=== PATIENT | male | born 1955 | race Caucasian/White ===

== ENCOUNTER → 2023-05-11 09:08 | Outpatient (BNVA) | payer OTHER, SELFPAY | PROVIDERS: Referring Provider Family Medicine; Visit Provider Orthopaedic Surgery | DX: M41.56 Other secondary scoliosis, lumbar region (principal); M47.816 Spondylosis without myelopathy or radiculopathy, lumbar region | CPT/HCPCS: 72110 ==

== ENCOUNTER → 2023-06-01 08:05 | Outpatient (BNVA) | payer OTHER, SELFPAY | PROVIDERS: Visit Provider Orthopaedic Surgery | DX: M19.012 Primary osteoarthritis, left shoulder (principal); Z98.1 Arthrodesis status; M47.812 Spondylosis without myelopathy or radiculopathy, cervical region | CPT/HCPCS: 72040; 73030 ==

== ENCOUNTER 2023-06-09 08:54 | Outpatient (CLI) | payer MEDICARE, SELFPAY ==
--- NOTE | 2023-06-09 09:30 | MR_ITS ---
WS: [id number] MRI CERVICAL SPINE NONCONTRAST TECHNIQUE: Sagittal T1, T2 and STIR imaging. Axial T2, gradient, and fiesta imaging. CLINICAL INFORMATION: cervical neck COMPARISON: None. FINDINGS: Straightening of the normal cervical lordosis. Prior postoperative changes ACDF C5-6. C2-C3: Mild facet arthropathy. Mild LEFT and no significant RIGHT foraminal narrowing. Spinal canal i s patent. C3-C4: Mild disc osteophyte complex with endplate ridging. Moderate facet arthropathy. Moderate RIGHT greater than LEFT bony foraminal narrowing. Moderate facet arthropathy. Mild central canal stenosis. C4-C5: Mild disc bulging with osteophytic ridging. Advanced LEFT facet arthropathy. Moderate LEFT and mild RIGHT bony foraminal narrowing. Mild central canal stenosis. C5-C6: Postoperative changes ACDF. Spinal canal is patent. Moderate facet arthropathy. Mild RIGHT gre ater than LEFT bony foraminal narrowing. C6-C7: Mild disc bulge with osteophytic ridging. Moderate LEFT greater than RIGHT bony foraminal narr owing. Mild facet arthropathy. Mild central canal stenosis. C7-T1: Mild central canal stenosis. Moderate bilateral bony foraminal narrowing. Moderate facet arthr opathy. Mild central canal stenosis. Visualized brain stem structures: Normal. Prevertebral soft tissues: Normal. IMPRESSION: 1. Straightening of the normal cervical lordosis. 2. Mild central canal stenosis C3-C4 C4-C5 and C6-C7. Mild central canal stenosis C7-T1. 3. Multilevel moderate bony foraminal narrowing worse at RIGHT C3-C4, LEFT C4-5, LEFT C6-7 and LEFT C7-T1. 4. Asymmetric moderate to advanced facet arthropathy worse at RIGHT C3-C4 and LEFT C4-C5
== END 2023-06-09 08:55 | disposition home or self-care (01) ==
LOC: RAD 08:57
PROVIDERS: PCP Registered Nurse; Visit Provider Orthopaedic Surgery
DX: M48.03 Spinal stenosis, cervicothoracic region (principal); M47.812 Spondylosis without myelopathy or radiculopathy, cervical region
CPT/HCPCS: 72141

== ENCOUNTER → 2023-06-15 08:25 | Outpatient (BNVA) | payer MEDICARE, SELFPAY | PROVIDERS: PCP Registered Nurse; Visit Provider Orthopaedic Surgery | DX: M25.519 Pain in unspecified shoulder (principal); M54.2 Cervicalgia | CPT/HCPCS: 99214 ==

== ENCOUNTER 2023-06-29 08:04 | Outpatient (CLI) | payer MEDICARE, SELFPAY ==
--- NOTE | 2023-06-29 08:11 | MR_ITS ---
WS: [id number] MRI LUMBAR SPINE NONCONTRAST HISTORY: Chronic low back pain. Progressive. COMPARISON: Lumbar spine radiographs 05/11/2023 TECHNIQUE: Sagittal and axial multisequence imaging is submitted. Prior cervical fusion C5-6. Mild curvature. Posterior alignment is normal. Disc spaces are mildly desiccated. No fractures or marrow edema. Conus terminates normally at L1-2 disc level. L1-L2: Mild facet arthritis. No stenosis. L2-L3: Mild annular disc bulging with ligamentum flavum and facet arthritis. Disc encroachment upon t he ventral thecal sac and subarticular recesses. There is mild disc contact on the exiting LEFT L2 ne rve root. Mild central and bilateral subarticular recess and LEFT foraminal stenosis. L3-L4: Diffuse mild annular disc bulging with ligamentum flavum and facet arthritis. Moderate ligamen merle flavum and facet arthritis. Mild central and subarticular recess and foraminal stenosis. Slightly greater encroachment upon the RIGHT traversing L4 nerve root. L4-L5: Moderate annular disc bulging with marked ligamentum flavum and facet arthritis. There is a ve ry tiny RIGHT paracentral disc protrusion contacting the traversing RIGHT L5 nerve root. Fluid in the LEFT facet joint. Mild to moderate central and bilateral subarticular recess stenosis. Mild foramina l stenosis. L5-S1: No stenosis or disc protrusions. IMPRESSION: 1. L4-5: Mild to moderate central and bilateral subarticular recess stenosis. Disc encroachment upon the traversing L5 nerve roots and a very tiny RIGHT paracentral disc protrusion. Only mild foraminal stenosis. 2. L3-4: Mild central, bilateral subarticular recess and foraminal stenosis. Slightly greater encroac hment upon the RIGHT traversing L4 nerve root. 3. L2-3: Mild central, bilateral subarticular recess and LEFT foraminal stenosis.
== END 2023-06-29 08:05 | disposition home or self-care (01) ==
LOC: RAD 08:05
PROVIDERS: PCP Registered Nurse; Visit Provider Orthopaedic Surgery
DX: M48.061 Spinal stenosis, lumbar region without neurogenic claudication (principal); G89.29 Other chronic pain
CPT/HCPCS: 72148

== ENCOUNTER 2023-07-05 07:46 | Outpatient (CLI) | payer MEDICARE, SELFPAY ==
--- NOTE | 2023-07-05 | MR_ITS ---
WS: [id number] MRI LEFT SHOULDER NONCONTRAST TECHNIQUE: Sagittal T2, coronal T1, T2 and proton density imaging. Axial gradient PDE imaging. CLINICAL INFORMATION: PAIN COMPARISON: None. FINDINGS: Some images degraded by motion. Moderate degenerative arthritis AC joint. Mild downsloping acromion. Slight narrowing of the subacro mial space. Mild edema at the AC joint. Edema involving the supraspinatus muscle belly nonspecific bu t may be inflammatory. Chronic thinning of the distal supraspinatus which appears intact. Normal infraspinatus. Normal teres minor. Subscapularis appears intact. Biceps tendon appears intact within the bicipital groove. Bicep s labral anchor appears intact. Degenerative fraying of the glenoid labrum. Moderate degenerative art hritis of the glenohumeral articulation. IMPRESSION: Some images degraded by motion 1. Moderate degenerative arthritis AC joint with mild edema. 2. Mild downsloping acromion with slight impingement on the distal supraspinatus. Chronic thinning o f the supraspinatus. No high-grade tears. 3. Edema involving the supraspinatus muscle belly may be inflammatory. 4. Rotator cuff is intact. 5. Normal biceps in the bicipital groove. 6. Moderate degenerative narrowing of the glenohumeral articulation.
== END 2023-07-05 07:47 | disposition home or self-care (01) ==
LOC: RAD 07:48
PROVIDERS: PCP Registered Nurse; Visit Provider Orthopaedic Surgery
DX: M19.012 Primary osteoarthritis, left shoulder (principal)
CPT/HCPCS: 73221

== ENCOUNTER → 2023-07-08 10:21 | Outpatient (BNVA) | payer MEDICARE, SELFPAY | PROVIDERS: PCP Registered Nurse; Visit Provider Orthopaedic Surgery | DX: M25.512 Pain in left shoulder (principal); M54.2 Cervicalgia; M43.16 Spondylolisthesis, lumbar region | CPT/HCPCS: 36415; 80053; 81003; 83036; 85025; 99214 ==

== ENCOUNTER → 2023-07-15 10:05 | Outpatient (BNVA) | payer MEDICARE, SELFPAY | PROVIDERS: PCP Registered Nurse; Visit Provider Family Medicine | DX: Z01.818 Encounter for other preprocedural examination (principal) | CPT/HCPCS: 80048; 85025 ==

== ENCOUNTER 2023-07-28 15:09 | Observation (INO) | payer MEDICARE, SELFPAY ==
[2023-07-28] VITALS (22 sets, daily range): BP systolic 107–158; BP diastolic 66–98; PULSE 74–97; RESP 14–22; TEMP 36.4–37.1; O2SAT 90–95; BMI 34.0
--- NOTE | 2023-07-28 | XR_ITS ---
WS: [id number] Exam: XR lumbar spine 2-3V* [id number] Date/Time of Exam: 07/28/2023 12:00 AM Reason For Exam: L4-5 instrumentd fusion Intraoperative AP and lateral images of the lumbar spine are submitted. The images depict posterior fusion with pedicle screws and posterior rods at L4-5 with intervening di sc spacer.
[2023-07-28 09:52] LABS: Glucose Point of Care 137 mg/dL (70-110)
[2023-07-28] MEDS: sodium chloride 0.9% 1,000 ML 30 ML IV (09:56)
--- NOTE | 2023-07-28 11:44 | ANES.PREANE2 ---
Pre-Anesthetic Assessment Height/Weight: Height 1.75 m Weight 104.326 kg Temp Pulse Resp BP Pulse Ox O2 Del Method 97.7 F 75 16 158/98 94 Room Air 07/28/23 09:26 07/28/23 09:26 07/28/23 09:26 07/28/23 09:26 07/28/23 09:26 07/28/23 09:26 Preop Diagnosis: Spondylolisthesis L4-5, lumbar stenosis Operation Date: 07/28/23 10:25 Proposed Procedures p L4/5 Posterior Lumbar Interbody Fusion PLIF(Not Applicable) - Miguel Mead, Familial anesthetic complications: None Was Beta Meño taken within 24 hours: N/A Was Clonidine taken within 24 hours: N/A Last intake: Intake Last Liquid Date 07/27/23 Last Liquid Time 21:00 Last Solid Date 07/27/23 Last Solid Time 21:00 Social No alcohol and No tobacco Exam alert, oriented x 3, clear to auscultation bilaterally and regular rate & rhythm Airway Mallampati: Class II Dentition: full CV/HEM Hypertension AAA Metabolic Diabetes Mellitus and Hyperlipidemia Anesthetic Plan ASA status: 3 Anesthesia: General Risk of > 500 ml blood loss (7ml/kg in children): No Medications/Allergies Home Medications Medication Instructions Recorded Confirmed Last Taken Type amlodipine 5 mg tablet 5 mg PO DAILY 05/11/23 07/27/23 07/27/23 History aspirin 81 mg tablet,delayed 81 mg PO DAILY 05/11/23 07/27/23 07/20/23 History release blood sugar diagnostic (OneTouch 05/11/23 07/08/23 Unknown History Verio test strips) celecoxib 200 mg capsule 200 mg PO DAILY 05/11/23 07/27/23 07/20/23 History gabapentin 300 mg capsule 300 mg PO DAILY 05/11/23 07/27/23 07/27/23 History glipizide 10 mg tablet 10 mg PO DAILY 05/11/23 07/27/23 07/27/23 History naloxone 4 mg/actuation nasal spray 4 mg intranasal Q2M 05/11/23 07/27/23 Unknown History omega-3 acid ethyl esters 1 gram 1 cap PO DAILY 05/11/23 07/27/23 07/20/23 History capsule oxycodone-acetaminophen 10 mg-300 1 tab PO Q8H PRN pain 05/11/23 07/27/23 07/27/23 History mg tablet potassium chloride 10 mEq 10 meq PO DAILY 05/11/23 07/27/23 07/27/23 History capsule,extended release tizanidine 4 mg capsule 4 mg PO BID PRN muscle spams 05/11/23 07/27/23 07/27/23 History atorvastatin 80 mg tablet 80 mg PO DAILY 07/15/23 07/27/23 07/27/23 History losartan 100 mg tablet 100 mg PO DAILY 07/15/23 07/27/23 07/27/23 History sildenafil 100 mg tablet 50 mg PO PRN PRN Sexual Activity 07/15/23 07/27/23 Unknown History Allergies Allergy/AdvReac Type Severity Reaction Status Date / Time Sulfa (Sulfonamide Allergy ADR-Vomitin Verified 07/15/23 08:57 Antibiotics) g Current Medications Generic Name Dose Route Start Last Admin Trade Name Freq PRN Reason Stop Dose Admin Sodium Chloride 1,000 mls @ 30 mls/hr 07/28/23 09:30 07/28/23 09:56 Sodium Chloride 0.9% IV 07/29/23 09:29 30 mls/hr .Q24H ABHI Administration Data Anesthesia Cardiac Studies: No Data to Display
[2023-07-28] MEDS: ceFAZolin 2,000 MG in sodium chloride 0.9% (plus) 50 ML 100 MG IV ×3 (12:08→22:47)
--- NOTE | 2023-07-28 12:57 | W.PM.OPSUD ---
Surgery/Procedure H&P Update DATE OF PROCEDURE: July 28, 2023 DATE H&P PERFORMED: 07/15/23 H&P UPDATE INFORMATION: I have reviewed H&P completed within last 30 days, I have examined patient prior to procedure and No changes to prior documentation PREOP DIAGNOSIS: Spondylolisthesis L4-5, lumbar stenosis PLANNED PROCEDURE: Operation Date: 07/28/23 10:25 Proposed Procedures p L4/5 Posterior Lumbar Interbody Fusion PLIF(Not Applicable) - Miguel Mead DO
[2023-07-28] MEDS: lidocaine-epi 1% 20 mL INJ 10 ML INJECTION (13:11)
[2023-07-28] MEDS: heparin, porcine 1,000 unit/mL INJ 10 mL 6000 UNIT XX (13:12)
[2023-07-28] MEDS: vancomycin 1,000 MG SDV 1000 MG XX (13:12)
--- NOTE | 2023-07-28 14:35 | P.OP_ITS ---
Operative Report Date of procedure: July 28, 2023 Pre-op diagnosis: Lumbar stenosis with neurogenic claudication Post-op diagnosis: same Procedure done: 1. L4/5 Interbody fusion with posterolateral fusion 2. Instrumentation L4/5 3. Cage at L4/5 4. L4/5 Laminectomy withfacetectomies 5. use of autograft from same incision 6. allograft 7. Bone marrow aspirate from right iliac crest 8. use of computer navigation /stereotactic for spine Surgeon: Miguel Mead DO Patrol Sergeant: Juno Hedrick Patrol Sergeant: The social services assistant, Juno Hedrick, PAC was needed for his expertise under the microscope. He was important and necessary throughout the procedure to complete in a safe and timely manner. He assisted with patient positioning prepping and draping tissue retraction suctioning of the operative field protection of the dural sac and tissue closure Estimated blood loss (mL): 200 Procedure: 1. L4/5 Interbody fusion with posterolateral fusion 2. Instrumentation L4/5 3. Cage at L4/5 4. L4/5 Laminectomy withfacetectomies 5. use of autograft from same incision 6. allograft 7. Bone marrow aspirate from right iliac crest 8. use of computer navigation /stereotactic for spine Patient is brought to the operative suite. After undergoing anesthesia, the patient had neuro monitoring attached. Patient was then placed in the prone position on the Charles table. All areas of impingement were well-padded. Maddy ent was then prepped and draped in the normal sterile fashion. Skin incision was then made over the L4 -L5 level. Subperiosteal dissection was made out to the transverse processes of L4 and L5. Once the exposure was complete attention was then brought to placing the pedicle screws. Next the [employer] bone marrow aspirate kit was used to aspirate bone marrow aspirate. This was done by using the sharp probe to open up the bone. Aspiration was performed and then the blunt probe was then used to dissect down to through the bone tunnel. An aspirating well drawn back a millimeter approximately 20 cc of bone marrow aspirate was used. And mixed with the allograft and autograft bone that will be used. Next the fiducial for computer navigation was attached the patient. This was done by placing 2 pins into the right iliac crest. Next the fiducial was attached. C-arm was brought in and spun around the patient. The information from serum was then sent to computer and later used for placing the pedicle screws. The technique for placing the pedicle screws was to use a drill followed by the gearshift probe linked to computer navigation. Followed by the ball probe to feel the superior inferior medial lateral rueda of the pedicles. Then placement of the screws using computer navigation. Was done at each pedicle. Screws were placed at L5 bilaterally and L5 bilaterally. Next attention was brought to performing the laminectomy ofL4. This was done using the high-speed bur Kerrisons and curettes. Once the lamina was removed and then attention was brought to performing a partial facetectomy on the contralateral side. This was done again using the high-speed bur curettes and Kerrisons. The ligamentum flavum was taken down bilaterally from L4 to L5. Attention was then brought to the facet on the ipsilateral side. The facet was taken down. The L5 nerve was decompressed as it passed around the L5 pedicle. The laminectomy was done for purposes of decompressing the nerve as well as placement of the cage. The L4 nerve was identified as it traversed through the L4/5 foramen. The thecal sac was identified and retracted. The L4/5 disc base was identified. Using a knife the disc base was opened. And then sequential brandon were placed. The first shaver was a 6 and the last shaver was a 11. Using a pituitary and down going curette the endplates were scraped and disc material was removed from the space. Once adequate decompression of the disc base was felt to be had. Osteoamp sponge was packed into the anterior aspect of the disc base. Then a size 12 cage from [employer] was placed after packing osteoamp into the cage. While placing the cage the thecal sac and L5 nerve was protected. C arm was used to ensure that the cages placed in the appropriate position. Attention was then brought to attaching the rods to the screws placed in the L4 and L5 bilaterally. Caps were torqued into position. Locking the construct in place. Wound was copiously irrigated and then attention was brought to decorticating the facets and transverse processes laterally. Bone that was taken down from the lamina was used along with osteoamp fibers and sponges were packed into the lateral gutters along the facet joints. This was done bilaterally. Wound was then closed in a layered fashion starting with the thoracolumbar fascia. 0-vicryl was used the sub cutaneous tissue was closed with 2-0 vicryl and skin with 4-0 monocryl. Glue was then used to seal the skin and a steril dressing was applied. Patient was then placed in the supine position. The endotracheal tube was removed and patient was transferred to the PACU in stable condition.
--- NOTE | 2023-07-28 15:15 | ANE.PACU2 ---
Inpatient post-anesthesia follow up: Airway intact: Yes Vital signs: Temperature 97.6 F Pulse Rate 95 Respiratory Rate 18 Blood Pressure 126/88 Pulse Oximetry 93 Oxygen Delivery Me thod Nasal Cannula Oxygen Flow Rate 4 Fraction of Inspir ed Oxygen Hydration adequate: Yes Nausea and vomiting: No Pain level: 1 Mental status: Baseline
[2023-07-28] MEDS: oxyCODONE-APAP 10-325 mg Tablet PO ×2 (15:56→22:45)
[2023-07-28] MEDS: lactated ringers 1,000 ML 90 ML IV (15:56)
[2023-07-28] MEDS: oxyCODONE 20 mg ER (12 HR) Tablet PO (17:33)
[2023-07-28] MEDS: docusate sodium 100 mg Capsule PO (17:33)
[2023-07-28] MEDS: tizanidine 4 mg Tablet PO (22:42)
[2023-07-29] VITALS (8 sets, daily range): BP systolic 126–150; BP diastolic 75–89; PULSE 77–88; RESP 16–18; TEMP 36.6–36.9; O2SAT 93–94; BMI 34.0
[2023-07-29] MEDS: oxyCODONE-APAP 10-325 mg Tablet PO ×2 (03:21→10:04)
[2023-07-29] MEDS: lactated ringers 1,000 ML 90 ML IV (03:22)
[2023-07-29] MEDS: ceFAZolin 2,000 MG in sodium chloride 0.9% (plus) 50 ML 100 MG IV (05:58)
--- NOTE | 2023-07-29 07:02 | P.PN_ITS ---
Subjective Subjective: POD 1 Patient resting comfortably. Reports ports mild back pain. Denies any leg pain. Denies any shortness of breath headaches or chest pain. Vitals/I&O/Wt Last Vital Signs Temp 97.9 F 07/29/23 03:02 Pulse 77 07/29/23 03:02 Resp 16 07/29/23 03:21 BP 128/76 07/29/23 03:02 Pulse Ox 93 07/29/23 03:02 O2 Del Method Nasal Cannula 07/29/23 03:02 O2 Flow Rate 1.5 07/29/23 03:02 07/28/23 07/29/23 07/29/23 22:59 06:59 14:59 Intake Total 530 / 1580 2022 / 3602 Output Total 450 / 1150 725 / 1875 Balance 80 / 430 1297 / 1727 Weight last 48 hrs Weight 230 lb Physical Exam Narrative: Patient presents alert and oriented x3 with a good general appearance normal mo od and affect. Normal coordination normal stability. Mild tenderness around the incisional site with the incision appear to be clean and dry w/ hemovac intact. No signs of erythema or drainage. No signs of infection. Patient denies any fevers or chills. 5/5 motor strength both lower extremities with negative straight leg raise bilaterally. Calves are supple no medial thigh tenderness. Pulses are 2+ at the dorsalis pedis and posterior tibial region. Good capillary refill throughout normal sensation light touch both lower extremities. Urinary Catheter Management: Whaley: Cath Placed During This Visit: yes Reason for Continuing Indwelling Catheter: Perioperative Use in Selected Surgeries Urinary Catheter Date of Insertion: 07/28/23 Urinary Catheter Time of Insertion: 12:30 A&P Assessment and plan (1) Status post lumbar spinal fusion: Physical therapy to work with mobilization. We will discontinue Hemovac drain and change dressing with Silverlon. Continue incentive spirometry at home. High risk of bleeding will continue SCDs for DVT prophylaxis. Will discharge home later this morning. We will send the oxycodone to the inpatient pharmacy for room delivery. We will see him back in the office in 1 week's time for wound check. Continue walking program with no bending lifting or twisting. Attestations 2 Medical Necessity Statement*: Discharge home later today after Hemovac drain discontinued. Coding Level of Care Code Acute Code for Chg Fwd Diagnoses Status post lumbar spinal fusion Z98.1
[2023-07-29] MEDS: omega-3 fatty acids 1,000 mg Capsule 1 MG PO (07:42)
[2023-07-29] MEDS: atorvastatin 40 mg Tablet 80 MG PO (07:42)
[2023-07-29] MEDS: aspirin 81 mg EC Tablet PO (07:42)
[2023-07-29] MEDS: amlodipine 5 mg Tablet PO (07:42)
[2023-07-29] MEDS: gabapentin 300 mg Capsule PO (07:43)
[2023-07-29] MEDS: losartan 50 mg Tablet 100 MG PO (07:43)
[2023-07-29] MEDS: CELEcoxib 200 mg Capsule PO (07:43)
[2023-07-29] MEDS: potassium chloride ER 10 mEq Tablet PO (07:43)
[2023-07-29] MEDS: docusate sodium 100 mg Capsule PO (07:43)
[2023-07-29] MEDS: oxyCODONE 20 mg ER (12 HR) Tablet PO (08:54)
--- NOTE | 2023-07-29 09:07 | PC.NURSE ---
HEMOVAC DISCONTINUED. PATIENT TOLERATED WELL
--- NOTE | 2023-07-29 10:09 | PC.CHAP ---
Pastoral Care Encounter/Spiritual Assessment Type of Contact [] Declined bee rancher visit [] Patient/Family/Request visit [] Outpatient visit [] Follow-up visit [] Physician referral [] Code/Alert [x] Routine visit [] Staff referral [] Actively dying [] Patient sleeping [] Family support [] [] Out of room [] Palliative care [] [x] Receiving care in room [] Pre-surgical visit [] Trauma [] Long length of stay [] ICU visit [] Other: Relational/Emotional Strength [x] Patient feels connected with others/family/visitors/staff [] Distress [] Loneliness/isolation [] Abandonment Spirituality of Patient [x] Person of Verna [] Attends Baptism of their Verna [x] Believes in Prayer [] Reads Bible or Buddhism materials [] There are Spiritual issues to be addressed 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 Interventions [x] Prayer [x] Active listening [x] Non-anxious presence [x] Spiritual/emotional support [] Crisis/trauma care [x] Spiritual counseling [] Bereavement support [] Provided bereavement packet [] Provided Bible/devotional materials [] Provided toy/stuffed animal, coloring book to patient or family member [] Provided Communion [] Anointing/[place] [] Salvation [x] Completed spiritual assessment [] Other: Impact on Illness or Injury [] Angry [] Fearful [] Anxious [] Often cries [] Exhaustion [] Unable to work [] Unable to attend cheondoism [] Unable to walk/stand [] Unable to read [] Unable to drive [] Unable to eat/drink [] Unable to sleep [] Unable to be with family [] Patient intubated [] Other: Summary surgery fusion on verd[place] in some pain well rehab at home has good attitude well go home Time spent with patient 10 mins
--- NOTE | 2023-07-29 11:13 | PC.SOCIAL ---
Care coordination: Patient does not have transportation home. His calls and reports that insurance will assist w/ transport. CM called and spoke to [facility] and he reports that transportation is not covered under their plan. Cm called patients and she reports that patient will need to have a cartender ride set up and for transport home and they will private pay.
--- NOTE | 2023-07-30 11:07 | PM.DCS ---
Discharge Providers Date of Admission: 07/28/23 15:09 Date of Discharge: July 29, 2023 Attending Provider at Admission: Miguel Mead DO Attending Provider at Discharge: Miguel Mead DO Primary Care Provider: Indy Presley Diagnoses at Discharge Discharge Diagnosis (1) Status post lumbar spinal fusion: Status: Acute Reason for Visit Reason for Visit: M43.16 Physical Exam Urinary Catheter Management: Whaley: Cath Placed During This Visit: yes, but has since been removed by the nurse Reason for Continuing Indwelling Catheter: Perioperative Use in Selected Surgeries Urinary Catheter Date of Insertion: 07/28/23 Urinary Catheter Time of Insertion: 12:30 Date Urinary Catheter Removed: 07/29/23 Time Urinary Catheter Discontinued: 07:10 Discharge Data Studies Completed and Pending Completed Studies During Hospitalization Category Date Time Status XR lumbar spine 2-3V* [id number] Routine Exams 07/28/23 Completed Laboratory Results POC Glucose 137 mg/dL (70-110) H 07/28/23 09:49 Vitals Last Vital Signs Temp 98.5 F 07/29/23 08:00 Pulse 88 07/29/23 08:00 Resp 18 07/29/23 11:38 BP 150/89 07/29/23 08:00 Pulse Ox 93 07/29/23 08:00 O2 Del Method Nasal Cannula 07/29/23 08:00 O2 Flow Rate 1.5 07/29/23 03:02 Discharge Plan Discharge Patient Disposition: Home Condition: Stable Prescriptions: Continued potassium chloride 10 mEq capsule, extended release 10 meq PO DAILY amlodipine 5 mg tablet 5 mg PO DAILY celecoxib 200 mg capsule 200 mg PO DAILY gabapentin 300 mg capsule 300 mg PO DAILY glipizide 10 mg tablet 10 mg PO DAILY omega-3 acid ethyl esters 1 gram capsule 1 cap PO DAILY naloxone 4 mg/actuation spray,non-aerosol 4 mg intranasal Q2M Rx Instructions: spray 1 dose into ONE nostril; alternate nostrils w each dose until help arrives (DME) OneTouch Verio test strips Strip See Rx Instructions .Route Rx Instructions: As directed tizanidine 4 mg capsule 4 mg PO BID PRN (Reason: muscle spams) aspirin 81 mg tablet,delayed release (DR/EC) 81 mg PO DAILY sildenafil 100 mg tablet 50 mg PO PRN PRN (Reason: Sexual Activity) Rx Instructions: administer 30 minutes to 4 hours before activity atorvastatin 80 mg tablet 80 mg PO DAILY losartan 100 mg tablet 100 mg PO DAILY Discontinued oxycodone-acetaminophen 10-300 mg tablet 1 tab PO Q8H PRN (Reason: pain) No Action oxycodone-acetaminophen 10-325 mg tablet 1 tab PO Q4H PRN (Reason: pain) 7 Days Qty: 40 0RF oxycodone-acetaminophen [Endocet] 10-325 mg tablet 1 tab PO Q4H PRN (Reason: pain) 7 Days Qty: 40 0RF Discharge Orders: Discharge Order (Routine); Ordered 07/29/23 Ordered By: Juno Hedrick Referrals: Miguel Mead DO [Physician] - 08/03/23 3:00 pm () Indy Presley [Primary Care Provider] - 08/02/23 10:00 am (Please arrive by 9:45) Discharge Diet: Advance as tolerated Discharge Activity: Limit activity as instructed Patient Instructions: Oxycodone/Acetaminophen (By mouth), Lumbar Spinal Fusion (GEN), Opioid Safety Activity Restrictions/Additional Instructions: Thank you for choosing [facility] for your care! The following is a list of instructions, from your provider, to follow upon your discharge to ensure you have the optimal recovery from your recent injury or surgery. Follow-up care is a eldridge part of your treatment and safety. Be sure to make and go to all appointments and call your doctor if you are having problems. If you do not already have a follow-up appointment made, call Dr. Mead's] office in the next 1-3 days to make follow up appointment for [1-2] weeks at [phone]. It is also a good idea to know your test results and keep a list of the medicines you take. Medications will be prescribed for you at your provider's discretion. These medications are to be used as instructed; if they are taken more often that prescribed they will not be refilled early and in most cases will not be refilled at all. > When a refill is needed, you should contact rena good 2-3 business days before your prescription runs out. Medications will NOT be refilled by practice management consultant providers after hours! > Many pain medications contain Tylenol (Acetaminophen). Do not consume more than 4,000 mg of Tylenol per day in total with any combination of medications. > Pain medications can cause constipation. Please use an over the counter stool softener as directed, while taking pain medications. Consult your local pharmacist with questions or recommendations on stool softeners. If constipation persists, contact our office or your primary care provider. > While under our care, you are not to receive pain medications or other controlled substances from any other provider unless our office is notified and approves. Any attempts to do so will result in refusal to prescribe any further pain medications and possible dismissal from our practice. ? Walking is essential for the healing process after surgery. We would like you to slowly advance your walking. This should be done on relatively flat clear ground (inside or out) or can be done on a treadmill. Remember this goal does not have to happen all at once, slowly increase your distance and duration. This can be broken into more more than one walk per day as tolerated. Patients who walk as directed after surgery rarely require Physical Therapy. In the unlikely event this issue arises your provider will direct hospital staff to make the appropriate arrangements. ? No lifting over 5 pounds {a gallon of milk) or bending/twisting until further notice. Each of these activities places an unnecessary amount of stress onto the body and can impede the delicate healing process. > Instead of bending at the waist, keep your back straight and bend at the knees. > Instead of twisting your torso, keep your back straight and turn your entire body with your feet. ? You may sleep in any position which makes you comfortable. Many patients find comfort sleeping in a reclining chair. It is not abnormal to have difficulty sleeping for the first several weeks following your surgery. We recommend trying Benadry! or Tylenol PM as directed to help with your sleeping difficulties. Both medications are over the counter and available without prescription. ? NO SMOKING!!! Smoking dramatically increases the probability of developing postoperative wound infections. ? Common complaints after lumbar and/or thoracic spine surgery include, but are not limited to: numbness and/or tingling in the legs, pain around the incision and surrounding tissues, muscle spasms, or stiffness of the middle to low back. Contact our office if these symptoms persist or if an acute change occurs. ? No driving for the first 3-5days, and not while taking narcotics until seen at your follow-up appointment and cleared. There are no restrictions for riding on short trips, however if you take a longer trip, arrangements should be made to make regular stops to get out of the vehicle and stretch . ? Swelling is an unfortunate event that will take place with any surgery and is the primary source of your postoperative discomfort. While walking and regular approved activities helps control inflammation, there are additional steps you can take to minimize swelling. > Place ice over the surgical site and surrounding tissue for twenty minutes, followed by applying a low/medium heat (heating pad) for an additional twenty minutes every 1-2 hours as needed for painrelief. > You may use of over the counter anti-inflammatory medications (Ibuprofen, Motrin, Aleve, Advil, etc) as directed on the package label. These types of medicines will significantly reduce the amount of discomfort you experience after surgery from swelling. It should be noted that if you have and allergy to any of these medications, or a history of ulcers or kidney disease you should consult you primary care provider prior to starting these medications. Discharge Attestations Time Spent in Discharge Care*: less than 30 min Quality Metrics Clinical Quality Measures [ No reported AMI, CVA or VTE this stay] Coding Level of Care Code Acute Code for Chg Fwd Diagnoses Status post lumbar spinal fusion Z98.1
== END 2023-07-29 11:39 | disposition home or self-care (01) ==
LOC: MEDSURG 18:49
PROVIDERS: Admitting Provider Orthopaedic Surgery; PCP Registered Nurse; Visit Provider Orthopaedic Surgery
PROC: (CPT 22612; principal; 2023-07-28 10:25)
DX: M48.062 Spinal stenosis, lumbar region with neurogenic claudication (principal); I10 Essential (primary) hypertension; E11.9 Type 2 diabetes mellitus without complications; E78.5 Hyperlipidemia, unspecified; Z79.82 Long term (current) use of aspirin
CPT/HCPCS: 20930; 20936; 20939; 22633; 22840; 22853; 61783; 63052; 36416; 51702; 72100; 76000; 82962; 97116; 97161; C1713; G0378; J0690; J1100; J1170; J1644; J2250; J2371; J2405; J2704; J2710; J3010; J3370; J3490; J7030; J7120

== ENCOUNTER → 2023-08-03 14:09 | Outpatient (BNVA) | payer MEDICARE, SELFPAY | PROVIDERS: PCP Registered Nurse; Visit Provider Orthopaedic Surgery | DX: Z98.1 Arthrodesis status (principal); Z47.89 Encounter for other orthopedic aftercare | CPT/HCPCS: 99024 ==

== ENCOUNTER → 2023-08-10 14:40 | Outpatient (BNVA) | payer MEDICARE, SELFPAY | PROVIDERS: PCP Registered Nurse; Visit Provider Orthopaedic Surgery | DX: Z98.1 Arthrodesis status (principal); Z47.89 Encounter for other orthopedic aftercare | CPT/HCPCS: 72100; 99024 ==

== ENCOUNTER → 2023-08-13 08:56 | Outpatient (BNVA) | payer MEDICARE, SELFPAY | PROVIDERS: PCP Registered Nurse; Referring Provider Orthopaedic Surgery; Visit Provider Student in an Organized Health Care Education/Training Program | DX: M75.42 Impingement syndrome of left shoulder (principal) | CPT/HCPCS: 20610; 99204; J3301 ==

== ENCOUNTER → 2023-09-02 14:33 | Outpatient (BNVA) | payer MEDICARE, SELFPAY | PROVIDERS: PCP Registered Nurse; Visit Provider Orthopaedic Surgery | DX: Z98.1 Arthrodesis status (principal); Z47.89 Encounter for other orthopedic aftercare | CPT/HCPCS: 72100; 99024 ==

== ENCOUNTER → 2023-10-14 14:08 | Outpatient (BNVA) | payer MEDICARE, SELFPAY | PROVIDERS: PCP Registered Nurse; Visit Provider Orthopaedic Surgery | DX: Z98.1 Arthrodesis status; Z47.89 Encounter for other orthopedic aftercare | CPT/HCPCS: 72100; 99024 ==

== ENCOUNTER → 2023-10-26 14:14 | Outpatient (BNVA) | payer MEDICARE, SELFPAY | PROVIDERS: PCP Registered Nurse; Visit Provider Student in an Organized Health Care Education/Training Program | DX: Z01.818 Encounter for other preprocedural examination (principal); S46.002A Unspecified injury of muscle(s) and tendon(s) of the rotator cuff of left shoulder, initial encounter; M75.22 Bicipital tendinitis, left shoulder; M75.42 Impingement syndrome of left shoulder; M19.012 Primary osteoarthritis, left shoulder; X58.XXXA Exposure to other specified factors, initial encounter | CPT/HCPCS: 99214 ==

== ENCOUNTER → 2023-11-24 11:00 | Outpatient (BNVA) | payer MEDICARE, SELFPAY | PROVIDERS: PCP Registered Nurse; Visit Provider Family Medicine | DX: Z01.818 Encounter for other preprocedural examination (principal) | CPT/HCPCS: 80053; 81003; 85025 ==

== ENCOUNTER → 2023-11-25 07:33 | Outpatient (BNVA) | payer MEDICARE, SELFPAY | PROVIDERS: PCP Registered Nurse; Visit Provider Family Medicine | DX: R82.71 Bacteriuria (principal) | CPT/HCPCS: 87086 ==

== ENCOUNTER 2023-12-08 05:39 | Day surgery (SDC) | payer MEDICARE, SELFPAY ==
[2023-12-08] VITALS (10 sets, daily range): BP systolic 142–194; BP diastolic 90–104; PULSE 76–90; RESP 17–19; TEMP 36.1–37.1; O2SAT 90–95; BMI 29.9
[2023-12-08] MEDS: ketorolac 30 mg/mL INJ IVP (06:30)
[2023-12-08] MEDS: acetaminophen 1,000 MG/100 ML PIGGYBACK 400 MG IV (06:30)
[2023-12-08] MEDS: scopolamine 1.5 Patch 1 PATCH TRANSDERMA (06:30)
[2023-12-08] MEDS: sodium chloride 0.9% 1,000 ML 30 ML IV (06:31)
[2023-12-08 06:35] LABS: Glucose Point of Care 113 mg/dL (70-110)
--- NOTE | 2023-12-08 06:53 | SUR.PREOP ---
Timeout was completed at bedside with Dr De Santiago, nerve block was performed to left shoulder
--- NOTE | 2023-12-08 07:00 | P.HP_ITS ---
Same Day Surgery H&P Indication for Procedure/HPI DATE OF PROCEDURE: December 08, 2023 CHIEF COMPLAINT/INDICATIONFOR SURGICAL PROCEDURE: Left shoulder pain rotator cuff injury, biceps tendinitis rotator cuff impingement, AC joint arthritis PREOP DIAGNOSIS: Left shoulder pain rotator cuff injury, biceps tendinitis rotator cuff impi PLANNED PROCEDURE: Operation Date: 12/08/23 07:00 Proposed Procedures p Shoulder Arthroscopy(Left) - Carrillo Steve, DO s AC Joint Resection(Left) - Carrillo Steve, DO s Subacromial Decompression(Left) - Carrillo [place], DO s Rotator Cuff Repair - Arthroscopy/ possible(Left) - Carrillo Steve, DO s Subacromial Ballon Spacer/ possible(Left) - Carrillo Steve, DO s Bicep Tenotomy/ possible(Left) - Carrillo Steve, DO Medications/Allergies* Home Medications Medication Instructions Recorded Confirmed Type amlodipine 5 mg tablet 5 mg PO DAILY 05/11/23 12/08/23 History aspirin 81 mg tablet,delayed 81 mg PO DAILY 05/11/23 12/07/23 History release blood sugar diagnostic (OneTouch 05/11/23 10/26/23 History Verio test strips) celecoxib 200 mg capsule 200 mg PO DAILY 05/11/23 12/07/23 History gabapentin 300 mg capsule 300 mg PO DAILY 05/11/23 12/08/23 History glipizide 10 mg tablet 10 mg PO DAILY 05/11/23 12/08/23 History naloxone 4 mg/actuation nasal spray 4 mg intranasal Q2M 05/11/23 12/07/23 History omega-3 acid ethyl esters 1 gram 1 cap PO DAILY 05/11/23 12/07/23 History capsule potassium chloride 10 mEq 20 meq PO DAILY 05/11/23 12/08/23 History capsule,extended release tizanidine 4 mg capsule 4 mg PO BID PRN muscle spams 05/11/23 12/07/23 History atorvastatin 80 mg tablet 80 mg PO DAILY 07/15/23 12/07/23 History losartan 100 mg tablet 100 mg PO DAILY 07/15/23 12/07/23 History sildenafil 100 mg tablet (Viagra) 50 mg PO PRN PRN Sexual Activity 07/15/23 12/07/23 History fexofenadine 60 mg capsule 60 mg PO DAILY 12/08/23 12/08/23 History Allergies/Adverse Reactions Allergy/AdvReac Type Severity Reaction Status Date / Time Sulfa (Sulfonamide Allergy ADR-Vomitin Verified 12/08/23 06:08 Antibiotics) g Current Medications: Generic Name Dose Route Start Last Admin Trade Name Freq PRN Reason Stop Dose Admin Sodium Chloride 1,000 mls @ 30 mls/hr 12/08/23 06:15 12/08/23 06:31 Sodium Chloride 0.9% IV 12/09/23 06:14 30 mls/hr .Q24H ABHI Administration Pertinent History/Comorbid Conditions* Social History Smoking and tobacco/nicotine status: former use of tobacco/nicotine Alcohol intake: never Pertinent Exam Findings alert, oriented x 3, operative site marked and procedure specific exam findings Please refer to orthopedic office note for full orthopedic examination patient did receive preoperative block and unable to assess motor or sensory at this time. Recommendations Surgery/Procedure today Other Plans: Plan to proceed to the OR today for left shoulder diagnostic and surgical arthroscopy AC joint resection, subacromial decompression, possible rotator cuff repair, possible subacromial balloon, possible biceps tenotomy, patient understands incidence of procedure response with complication alternatives of surgery and through shared decision make elects proceed with surgical intervention. All questions answered. Coding Level of Care Code Acute Code for Chg Daryl
[2023-12-08] MEDS: ceFAZolin 2,000 MG in sodium chloride 0.9% (plus) 50 ML 100 MG IV (07:04)
--- NOTE | 2023-12-08 07:05 | ANES.PREANE2 ---
Pre-Anesthetic Assessment Height/Weight: Height 1.75 m Weight 92.079 kg Temp Pulse Resp BP Pulse Ox O2 Del Method 98.7 F 76 19 H 161/104 93 Room Air 12/08/23 06:13 12/08/23 06:13 12/08/23 06:13 12/08/23 06:13 12/08/23 06:13 12/08/23 06:14 Preop Diagnosis: Left shoulder pain rotator cuff injury, biceps tendinitis rotator cuff impi Operation Date: 12/08/23 07:00 Proposed Procedures p Shoulder Arthroscopy(Left) - Carrillo [place], DO s AC Joint Resection(Left) - Carrillo Steve, DO s Subacromial Decompression(Left) - Carrillo Steve, DO s Rotator Cuff Repair - Arthroscopy/ possible(Left) - Carrillo [place], DO s Subacromial Ballon Spacer/ possible(Left) - Carrillo [place], DO s Bicep Tenotomy/ possible(Left) - Carrillo Steve, DO Familial anesthetic complications: none Was Beta Meño taken within 24 hours: N/A Was Clonidine taken within 24 hours: N/A Last intake: Intake Last Liquid Date 12/07/23 Last Liquid Time 21:00 Last Solid Date 12/07/23 Last Solid Time 21:00 Social No alcohol and No tobacco Exam alert, oriented x 3, clear to auscultation bilaterally and regular rate & rhythm Airway Mallampati: Class IV CV/HEM Hypertension AAA Chronic Renal Insufficiency Metabolic Diabetes Mellitus and Hyperlipidemia Anesthetic Plan ASA status: 3 Anesthesia: General and Regional (specify below) Risk of > 500 ml blood loss (7ml/kg in children): No Medications/Allergies Home Medications Medication Instructions Recorded Confirmed Last Taken Type amlodipine 5 mg tablet 5 mg PO DAILY 05/11/23 12/08/23 12/08/23 History aspirin 81 mg tablet,delayed 81 mg PO DAILY 05/11/23 12/07/23 12/01/23 History release blood sugar diagnostic (OneTouch 05/11/23 10/26/23 Unknown History Verio test strips) celecoxib 200 mg capsule 200 mg PO DAILY 05/11/23 12/07/23 12/03/23 History gabapentin 300 mg capsule 300 mg PO DAILY 05/11/23 12/08/23 12/08/23 History glipizide 10 mg tablet 10 mg PO DAILY 05/11/23 12/08/23 12/07/23 History naloxone 4 mg/actuation nasal spray 4 mg intranasal Q2M 05/11/23 12/07/23 Unknown History omega-3 acid ethyl esters 1 gram 1 cap PO DAILY 05/11/23 12/07/23 12/06/23 History capsule potassium chloride 10 mEq 20 meq PO DAILY 05/11/23 12/08/23 12/08/23 History capsule,extended release tizanidine 4 mg capsule 4 mg PO BID PRN muscle spams 05/11/23 12/07/23 07/27/23 History atorvastatin 80 mg tablet 80 mg PO DAILY 07/15/23 12/07/23 12/07/23 History losartan 100 mg tablet 100 mg PO DAILY 07/15/23 12/07/23 12/07/23 History sildenafil 100 mg tablet (Viagra) 50 mg PO PRN PRN Sexual Activity 07/15/23 12/07/23 Unknown History oxycodone-acetaminophen 10 mg-325 1 tab PO Q4H PRN pain 7 days #40 07/29/23 12/08/23 12/08/23 Rx mg tablet (Endocet) tabs fexofenadine 60 mg capsule 60 mg PO DAILY 12/08/23 12/08/23 12/08/23 History Allergies Allergy/AdvReac Type Severity Reaction Status Date / Time Sulfa (Sulfonamide Allergy ADR-Vomitin Verified 12/08/23 06:08 Antibiotics) g Current Medications Generic Name Dose Route Start Last Admin Trade Name Freq PRN Reason Stop Dose Admin Sodium Chloride 1,000 mls @ 30 mls/hr 12/08/23 06:15 12/08/23 06:31 Sodium Chloride 0.9% IV 12/09/23 06:14 30 mls/hr .Q24H ABHI Administration PFSH Anesthesia Social History Smoking and tobacco/nicotine status: former use of tobacco/nicotine Alcohol intake: never Data Anesthesia Cardiac Studies: No Data to Display
--- NOTE | 2023-12-08 07:06 | ANES.PROC ---
Anesthesia Procedures Procedure/Date: 12/08/23 Nerve Block ^: Nerve Block 1: Main Anesthesia: general anesthesia Time Out Performed: Yes Consent: requested by attending/covering physician, from patient, from other, risks and benefits reviewed and patient agrees to proceed Nerve block location: interscalene (L) Anesthesia monitors applied: pulse oximetry, EKG, BP cuff and oxygen Nerve block position: semi sitting Anesthetic Used: ropivicaine 0.5% (20 ml) and with decadron (4 mg) Ultrasound used to: recognize landmarks, visualize and ID brachial plexus, in supraclavicular region and visualize and ID interscalene groove Nerve Stimulator Used?: No Interscalene/Femoral BLK: 2 stimuplex 22 g needle used for position and inplane approach, visualize local anesthetic spread and no vascular puncture identified Injection: neg aspiration of heme Patient Tolerated Procedure: well Complications: none
[2023-12-08] MEDS: EPINEPHrine 1 mg/mL INJ 2 MG XX (07:55)
--- NOTE | 2023-12-08 08:29 | W.PM.BPON ---
Date of Procedure: 12/08/2023 Surgeon: Carrillo Wilson DO Master Fire Control Technician(s): Rowdy Wilson PA-C Procedure(s) performed: Right shoulder diagnostic and surgical arthroscopy with labral debridement Right shoulder diagnostic and surgical arthroscopy with biceps tenotomy Right shoulder diagnostic and surgical arthroscopy with rotator cuff debridement Right shoulder diagnostic and surgical arthroscopy with subacromial decompression (bursectomy and acromioplasty) Right shoulder diagnostic and surgical arthroscopy with AC joint resection (distal clavicle excision) Right shoulder diagnostic and surgical arthroscopy with subacromial balloon spacer Findings of the procedure(s): Patient found to have extremely redundant and patulous rotator cuff with no tension and complete dysfunction appreciated, patient also had AC joint arthritis subacromial impingement, labral debridement as well as biceps tendinitis patient underwent procedure as planned without any issues or complications. Estimated blood loss: 1 mL Specimen(s) removed: None Post-operative diagnosis: Right shoulder biceps tendinitis, labral tearing, rotator cuff partial tearing with patulous and redundant rotator cuff, subacromial impingement, AC joint arthritis
--- NOTE | 2023-12-08 08:32 | PM.OP ---
Operative Report Date of procedure: December 08, 2023 Surgeon: Carrillo Wilson DO Assembler Faucets: oRwdy Wilson PA-C: PA was necessary for assistance in this case with shoulder positioning to execute the procedure, assistance with instrumentation, as well as implant fixation when necessary, assist with wound closure and dressing application. Procedure: Surgeon: Carrillo Wilson DO Assembler Faucets: Rowdy Wilson PA-C: MANDYC was necessary for assistance in this case for assistance in holding shoulder positioning as well as assistance with instrumentation and passing as well as to assist with wound closure. Procedure: Preoperative diagnosis: Left shoulder pain Left shoulder rotator cuff tear/dysfunction Left shoulder AC joint arthritis Left shoulder subacromial impingement Left shoulder biceps tendinitis Post-op diagnosis:? Left?shoulder massive rotator cuff attenuation and dysfunction Left?shoulder?biceps tendon tear Left shoulder labral tearing Left?shoulder?AC joint arthritis Left?shoulder?subacromial bursitis/impingement Procedure done: Left?shoulder?diagnostic and surgical arthroscopy biceps tenotomy Left?shoulder?diagnostic and surgical arthroscopy labral debridement Left?shoulder?diagnostic and surgical arthroscopy acromioclavicular joint resection Left?shoulder?diagnostic and surgical arthroscopy subacromial decompression (acromioplasty and bursectomy) Left shoulder diagnostic and surgical arthroscopy rotator cuff debridement with subacromial balloon spacer for massive rotator cuff attenuation/tearing and dysfunction Surgeon: Carrillo Wislon DO Estimated blood loss: [1]mL IV fluids: See anesthesia record Implants: Small size [place] Inspace subacromial balloon Complications: None Condition: stable Disposition: same day Brief History: Patient been seen and worked up in the outpatient setting for Left?shoulder?pain.? Pt had an MRI consistent with patients ac joint arthritis, biceps tendintis, subacromial impingement, rotator cuff dysfunction/thinning and possible tearing. Patient's failed conservative treatment and has significant weakness.? Patient has findings on exam are classic consistent of a massive Left shoulder rotator cuff tear. We talked about treatment options far as nonoperative and operative intervention..? We talked about risk benefits complication alternatives surgical nonsurgical treatment options.? Understanding risk of surgery pt agrees to proceed with surgical intervention.? All questions have been answered at this time.? Patient elects proceed with surgery and consent obtained in office. Procedure: Patient seen evaluated in the preoperative holding area.? Consent reviewed and signed with patient.? Once again reviewed patient's MRI results as well as? planned surgical intervention.? Correct extremity marked.? Patient seen evaluated by anesthesia department received regional anesthesia.? Once ready for surgery was taken back to the operative suite.? Patient then subsequently underwent anesthesia per the anesthesia department was transported onto the OR table.? Patient was then placed into a lateral decubitus position with a beanbag and was appropriately secured to the bed.? All bony prominences well-padded.? Patient then had the Left upper extremity was then prepped and draped in standard orthopedic fashion.? Patient received appropriate preoperative antibiotics.? Final timeout performed. The Left upper extremity was then held in hanging from traction utilizing sterile technique.? Next started with standard diagnostic and surgical arthroscopy with posterior portal position introduced arthroscope into the glenohumeral joint.? Visualized the glenohumeral joint I then introduced a spinal needle within the rotator cuff interval to confirm appropriate anterior portal placement.? Once this was confirmed I then made my small incision and then introduced my arthroscopic shaver into the glenohumeral joint.? After thorough debridement was clearly evident patient had a significant erythema as well as positive liftoff sign of the biceps anchor and biceps tendon tear as it was pulled within the joint.? Decision at this time was made to perform a biceps tenotomy.? Introduced a thermal wand and a biceps tenotomy was performed to completion With appropriate release.? Next I evaluated the subscapularis tendon which was intact with no tear. ?Next there was significant labral tearing at biceps anchor and circumferential.? ? I then subsequently utilized a a arthroscopic shaver and thermal wand to perform a labral debridement.? This point time I then visualized the glenohumeral joint.? 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 Infrapatellar pouch was free of loose bodies from viewing the posterior portal.? Next a visualized the rotator cuff superiorly, there is no seatbelt sign however patient's rotator cuff tendon tissue was extremely attenuated and very loose there was no tension and had significant ballooning affect with influx and suction of the joint, consistent with significant massive rotator cuff dysfunction with severe thinning of the tissues concerning for incompetent rotator cuff. This completed my work within the glenohumeral joint all fluid was suctioned free of the joint.? ?Next I reintroduced the arthroscope posteriorly.? And went to the subacromial space.? I established my lateral working portal.? Thermal wand was then introduced laterally and then I subsequently performed extensive bursectomy of the subacromial space.? I then once again visualized the rotator cuff tissue quality was severely thin and attenuated and had no tension and when taking the shoulder through range of motion had no normal tendon excursion consistent with severe rotator cuff attenuation and dysfunction. Patient had fraying throughout the top of the rotator cuff as result and arthroscopic shaver was then subsequently used to debride the subacromial space as well as to debride the top part of the rotator cuff to stimulate healing. Given the severe thinning of patient's rotator cuff and attenuation of tissue this did not function as normal rotator cuff tendon and and therefore behave more like a massive rotator cuff tear this is how he examined clinically on his severity of weakness and classic inability to abduct and forward flex as well as positive drop arm. There is I did not want to shave and take away any residual fibers of the rotator cuff and there was no ability to retention I feel this patient would be appropriate for a subacromial balloon spacer to occupy the space as the rotator cuff was not functioning as a biomechanical he should and the humeral head had excessive superior migration with activation given the attenuation of the rotator cuff. As a result I elected for subacromial balloon spacer. Given this current nature I selected to place a subacromial balloon to help with the humeral head depressor. In order for preparation of this I performed a standard bursectomy. I then utilized my thermal wand to identify the subacromial space and performed a gentle subacromial decompression just to flatten the acromion. I then identified the AC joint. Once identified the AC joint this was very arthritic in nature.? Thermal wand was placed anteriorly to establish appropriate plane for AC joint resection.? Once appropriate margins and anterior inferior and anterior capsule was released I then introduced arthroscopic shaver and a bur and performed AC joint resection of both the acromion to cope plane at the AC joint and a distal clavicle resection was then performed totaling 1 cm in size and was confirmed.? This completed my AC joint resection. At this point in time I then proceeded with placement of a subacromial balloon in space. At this point in time I utilized the standard measuring device utilizing arthroscopic probe and this was determined to have appropriate space for a small sized this was then selected and opened by the rep and handed to my staff. I then utilizing the InSpace deployment device this was then laid into the subacromial space placed into appropriate position the balloon was then exposed and the balloon was then subsequently filled with normal saline to the appropriate amount per [place] InSpace protocol. The device was then disengaged and the balloon was inspected this stayed in stable position I then mobilized the shoulder and the humeral head remained depressed and in its appropriate position while it was taken through range of motion of the balloon stayed in stable position and had satisfactory placement and covered the humeral head. This completed the surgery.? All fluid was suctioned from the?shoulder.? All instruments were removed.? The lateral incision was then closed with nylon stitches.? As well as the portal sites closed with portal nylon stitches.? Xeroform 4 x 4's ABD and tape was then applied to the Left?shoulder?and was placed into a?shoulder?abduction pillow sling..? Patient was then awakened from anesthesia and then taken back to PACU in stable condition.? Patient tolerated procedure without any issues. Disposition: Patient taken back in stable condition recovering well.? Dressings on in place clean dry and intact.? Will be nonweightbearing to the Left upper extremity.? Follow appropriate PT protocol.? Patient to follow-up with me in the office in 2 weeks.? Patient will receive appropriate discharge instruction as well as pain medication postoperatively.? All questions answered.? We will contact the office for any questions or concerns.
--- NOTE | 2023-12-08 08:46 | PM.PACU ---
PACU note Narrative: Patient is a 68-year-old male that just underwent a left shoulder arthroscopy with balloon spacer placement. Patient transferred to PACU in stable condition. Pain is well controlled. shoulder Dressing on , dry and in place. Patient's operative arm is in a shoulder immobilizer. Patient is awake and alert and able to respond to my questions accordingly. Patient's fingers are warm with good perfusion. Normal cap refill under 2 seconds. left radial pulse 2+. Unable to assess further range of motion in arm due to sling. Pt can wiggle fingers and has sensation to hand intact. Exam: awake Disposition: discharged
[2023-12-08] MEDS: hyDRALAzine 20 mg/mL INJ 1 mL 5 MG IVP (09:10)
--- NOTE | 2023-12-08 09:23 | PC.NURSE ---
Dr. De Santiago aware of low O2 sat, directed for the pt to remain on nasal canula, but okay to transfer to phase 2
[2023-12-08] MEDS: HYDROcodone-acetaminophen 5-325 mg Tablet 1 TAB PO (09:36)
--- NOTE | 2023-12-08 10:18 | SUR.PHASEII ---
Patient's O2 is dropping below 90% when NC removed. Having patient sit on bed with O2 will monitor. Once patient can maintain O2 above 92% will release home
--- NOTE | 2023-12-08 10:20 | ANE.PACU2 ---
Inpatient post-anesthesia follow up: Airway intact: Yes Vital signs: Temperature 98.0 F Pulse Rate 81 Respiratory Rate 17 Blood Pressure 156/90 Pulse Oximetry 93 Oxygen Delivery Me thod Nasal Cannula Oxygen Flow Rate 2 Fraction of Inspir ed Oxygen Hydration adequate: Yes Nausea and vomiting: No Pain level: 1 Mental status: Baseline
== END 2023-12-08 10:20 | disposition home or self-care (01) ==
PROVIDERS: PCP Registered Nurse; Visit Provider Student in an Organized Health Care Education/Training Program
PROC: (CPT 29805; principal; 2023-12-08 07:00)
PROC: 0RSH0ZZ Reposition Left Acromioclavicular Joint, Open Approach (ICD-10-PCS; CPT 29826; 2023-12-08 07:00)
PROC: (CPT 29826; 2023-12-08 07:00)
PROC: 0LQ24ZZ Repair Left Shoulder Tendon, Percutaneous Endoscopic Approach (ICD-10-PCS; CPT 29827; 2023-12-08 07:00)
PROC: (CPT 29999; 2023-12-08 07:00)
PROC: (CPT 23405; 2023-12-08 07:00)
DX: M75.102 Unspecified rotator cuff tear or rupture of left shoulder, not specified as traumatic (principal); M19.012 Primary osteoarthritis, left shoulder; M25.812 Other specified joint disorders, left shoulder; M75.22 Bicipital tendinitis, left shoulder; I10 Essential (primary) hypertension; E11.9 Type 2 diabetes mellitus without complications; E78.5 Hyperlipidemia, unspecified; Z79.82 Long term (current) use of aspirin; Z87.891 Personal history of nicotine dependence
CPT/HCPCS: 29826; 29827; 29828; 36416; 82962; C1889; J0131; J0171; J0330; J0360; J0690; J1100; J1885; J2371; J2405; J2704; J2710; J2795; J3010; J3490; J7030

== ENCOUNTER → 2023-12-21 13:16 | Outpatient (BNVA) | payer MEDICARE, SELFPAY | PROVIDERS: PCP Registered Nurse; Visit Provider Student in an Organized Health Care Education/Training Program | DX: Z98.890 Other specified postprocedural states (principal) | CPT/HCPCS: 99024 ==

== ENCOUNTER → 2024-01-13 08:43 | Outpatient (BNVA) | payer MEDICARE, SELFPAY | PROVIDERS: PCP Registered Nurse; Visit Provider Orthopaedic Surgery | DX: Z98.1 Arthrodesis status (principal) | CPT/HCPCS: 72100; 99213 ==

== ENCOUNTER → 2024-03-28 14:28 | Outpatient (BNVA) | payer MEDICARE, SELFPAY | PROVIDERS: PCP Registered Nurse; Visit Provider Student in an Organized Health Care Education/Training Program | DX: Z98.890 Other specified postprocedural states (principal) | CPT/HCPCS: 73030 ==

== ENCOUNTER → 2024-07-25 13:10 | Outpatient (BNVA) | payer MEDICARE, SELFPAY | PROVIDERS: PCP Registered Nurse; Visit Provider Orthopaedic Surgery | DX: Z98.1 Arthrodesis status (principal) | CPT/HCPCS: 72100; 99213 ==

== ENCOUNTER → 2024-10-03 09:17 | Outpatient (BNVA) | payer OTHER, MEDICARE, SELFPAY | PROVIDERS: PCP Registered Nurse; Visit Provider Student in an Organized Health Care Education/Training Program | DX: M25.552 Pain in left hip (principal); M53.3 Sacrococcygeal disorders, not elsewhere classified; M70.61 Trochanteric bursitis, right hip; M70.62 Trochanteric bursitis, left hip | CPT/HCPCS: 73502 ==

== ENCOUNTER → 2024-11-07 15:31 | Outpatient (BNVA) | payer OTHER, SELFPAY | PROVIDERS: PCP Registered Nurse; Visit Provider Anesthesiology Pain Medicine | DX: Z01.818 Encounter for other preprocedural examination (principal); E11.9 Type 2 diabetes mellitus without complications | CPT/HCPCS: 36416; 77002; 82947; 82962 ==

== ENCOUNTER → 2024-11-20 09:15 | Outpatient (BNVA) | payer MEDICARE, SELFPAY | PROVIDERS: PCP Registered Nurse; Visit Provider Anesthesiology Pain Medicine | DX: M54.9 Dorsalgia, unspecified (principal); Z87.891 Personal history of nicotine dependence | CPT/HCPCS: 99214 ==

== ENCOUNTER → 2024-12-05 14:25 | Outpatient (BNVA) | payer MEDICARE, SELFPAY | PROVIDERS: PCP Registered Nurse; Visit Provider Anesthesiology Pain Medicine | DX: M47.816 Spondylosis without myelopathy or radiculopathy, lumbar region (principal); E11.9 Type 2 diabetes mellitus without complications; Z01.818 Encounter for other preprocedural examination; M54.9 Dorsalgia, unspecified | CPT/HCPCS: 36416; 64493; 64494; 82962; J3490; J9999 ==

== ENCOUNTER → 2024-12-18 08:54 | Outpatient (BNVA) | payer MEDICARE, SELFPAY | PROVIDERS: PCP Registered Nurse; Visit Provider Anesthesiology Pain Medicine | DX: M54.9 Dorsalgia, unspecified (principal) | CPT/HCPCS: 99214 ==

== ENCOUNTER → 2024-12-26 13:10 | Outpatient (BNVA) | payer MEDICARE, SELFPAY | PROVIDERS: PCP Registered Nurse; Visit Provider Anesthesiology Pain Medicine | DX: M47.816 Spondylosis without myelopathy or radiculopathy, lumbar region (principal); M54.9 Dorsalgia, unspecified; Z87.891 Personal history of nicotine dependence | CPT/HCPCS: 36416; 64493; 64494; 64495; 82962; J3490; J9999 ==

== ENCOUNTER → 2025-01-09 08:30 | Outpatient (BNVA) | payer MEDICARE, SELFPAY | PROVIDERS: PCP Registered Nurse; Visit Provider Anesthesiology Pain Medicine | DX: M54.9 Dorsalgia, unspecified (principal) | CPT/HCPCS: 99214 ==

== ENCOUNTER → 2025-01-30 13:00 | Outpatient (BNVA) | payer MEDICARE, SELFPAY | PROVIDERS: PCP Registered Nurse; Visit Provider Anesthesiology Pain Medicine | DX: M47.816 Spondylosis without myelopathy or radiculopathy, lumbar region (principal); M54.9 Dorsalgia, unspecified; Z01.818 Encounter for other preprocedural examination | CPT/HCPCS: 36416; 64635; 64636; 82962; J1010; J9999 ==

== ENCOUNTER → 2025-02-13 08:32 | Outpatient (BNVA) | payer MEDICARE, SELFPAY | PROVIDERS: PCP Registered Nurse; Visit Provider Anesthesiology Pain Medicine | DX: M54.9 Dorsalgia, unspecified (principal) | CPT/HCPCS: 99214 ==

== ENCOUNTER → 2025-05-28 10:50 | Outpatient (BNVA) | payer MEDICARE, SELFPAY | PROVIDERS: PCP Registered Nurse; Visit Provider Anesthesiology Pain Medicine | DX: M54.9 Dorsalgia, unspecified (principal); Z87.891 Personal history of nicotine dependence | CPT/HCPCS: 99214 ==